=== PATIENT | male | born 1965 | race Two or more races ===

== ENCOUNTER 2017-04-04 07:57 | Day surgery (SDC) | payer MEDICARE, MEDICAID ==
[2017-04-04] MEDS ORDERED: Lactated Ringers 1,000 ML IV SCH ×2 (09:00→12:15)
[2017-04-04] MEDS ORDERED: Propofol 200 MG/20 ML SDV ONE ×2 (09:29→09:52)
[2017-04-04] MEDS ORDERED: fentaNYL 100 MCG/2 ML SDV ONE (09:29)
[2017-04-04] MEDS ORDERED: Midazolam 1 MG/ML 2 ML SDV ONE (09:29)
[2017-04-04 12:00] VITALS: BP 117/73
--- NOTE | 2017-04-05 11:34 | OR ---
DATE OF PROCEDURE: 04/04/2017 PREOPERATIVE DIAGNOSIS: Colon cancer screening. POSTOPERATIVE DIAGNOSIS: Three colon polyps and poor colonoscopy prep. PROCEDURES: Colonoscopy to the cecum with biopsy resection of three small colon polyps; 60 cm, 15 cm, and distal rectum. ANESTHESIA: IV anesthesia with monitored anesthesia care. INDICATION: This 51-year-old white male was referred for a colonoscopy for colon cancer screening. He has never had a colonoscopic exam. I counseled him for the procedure including risks and alternatives, and he gave his informed consent to proceed. DESCRIPTION OF PROCEDURE: The patient was placed in the left lateral decubitus position. IV anesthesia was administered by the Anesthesia service. Time-out was held. A rectal exam was performed, which was unremarkable. The flexible video Olympus colonoscope was introduced through his anus, up his rectum, and out his colon all way to the cecum. En route, we encountered a great deal of both solid and liquid stool. We could not remove the solid stool. We were able to remove much of the liquid stool. The scope was then slowly withdrawn examining the mucosa throughout. At 60 cm from anal verge, we encountered a polyp. This was removed with a biopsy forceps. Another one was seen at 15 cm from the anal verge and removed with biopsy forceps. The scope was retroflexed in the rectum, in the distal rectum, showing another small polyp, which was removed with the biopsy forceps. The scope was straightened and removed. He tolerated the procedure well. Talib Alonso MD /[id number]
== END 2017-04-04 13:55 | disposition home or self-care (01) ==
LOC: JP.SDS 07:57
PROVIDERS: ATTEND Surgery
PROC: 0DBP8ZX Excision of Rectum, Via Natural or Artificial Opening Endoscopic, Diagnostic (ICD-10-PCS; principal; 2017-04-04)
PROC: 0DBF8ZX Excision of Right Large Intestine, Via Natural or Artificial Opening Endoscopic, Diagnostic (ICD-10-PCS; 2017-04-04)
DX: Z12.11 Encounter for screening for malignant neoplasm of colon (principal); D12.7 Benign neoplasm of rectosigmoid junction; D12.2 Benign neoplasm of ascending colon
CPT/HCPCS: 45380; J2250; J2704; J3010; J7120; 88305

== ENCOUNTER 2020-08-10 06:12 | Day surgery (SDC) | payer MEDICARE, MEDICAID ==
[2020-08-10] MEDS: Sodium Chloride 0.9% 1,000 ML IV SCH (07:06)
[2020-08-10] MEDS ORDERED: fentaNYL 100 MCG/2 ML SDV ONE (07:18)
[2020-08-10] MEDS ORDERED: Midazolam 1 MG/ML 2 ML SDV ONE (07:18)
[2020-08-10] MEDS ORDERED: Propofol 200 MG/20 ML SDV ONE (07:18)
[2020-08-10 09:01] VITALS: BP 105/67; PULSE 66
--- NOTE | 2020-08-10 12:15 | OR ---
DATE OF PROCEDURE: 08/10/2020 SURGEON: Christian Romero MD PROCEDURE: Colonoscopy. FINDINGS: Incomplete colon prep. COMPLICATION: None. SALES AND SERVICE ADVISOR: None. ANESTHESIA: MAC. RISKS: Risks, benefits, alternatives, and limitations including, but not limited to infection, bleeding, and perforation were explained to the patient, who wished to proceed. PROCEDURE IN DETAIL: The patient was placed in left lateral decubitus position. Digital rectal exam was performed without abnormality. The scope was introduced, and immediately a large amount of solid stool was noted. This was noted to be present through the descending colon. This prevented visualization of approximately 90% of the luminal surface. Therefore, the procedure was terminated. The patient tolerated the procedure well. Christian Romero MD /[id number]
== END 2020-08-10 09:14 | disposition home or self-care (01) ==
LOC: JP.SDS 06:12
PROVIDERS: ATTEND Surgery
DX: Z12.11 Encounter for screening for malignant neoplasm of colon (principal); Z86.010 Personal history of colon polyps
CPT/HCPCS: G0104; J2250; J2704; J3010; J7030

== ENCOUNTER 2020-08-16 06:33 | Day surgery (SDC) | payer MEDICARE, MEDICAID ==
[2020-08-16] MEDS ORDERED: Sodium Chloride 0.9% 1,000 ML IV SCH (07:00)
[2020-08-16] MEDS ORDERED: Propofol 200 MG/20 ML SDV ONE (07:10)
[2020-08-16] MEDS ORDERED: Midazolam 1 MG/ML 2 ML SDV ONE (07:10)
[2020-08-16] MEDS ORDERED: fentaNYL 100 MCG/2 ML SDV ONE (07:10)
[2020-08-16 09:22] VITALS: BP 105/65; PULSE 52
--- NOTE | 2020-08-16 12:20 | PN ---
DATE OF SERVICE: 08/16/2020 The patient and I had discussion about his colonoscopy, which had a large amount of stool remaining, and it was recommended he have a longer prep and repeat colonoscopy and the patient has politely declined. We discussed risks, benefits, alternatives, limitations of this choice. We also discussed the possibility of missing colorectal cancer, polyps, or other pathological finding due to the poor prep, and he understood these risks. The patient was alert and oriented during this conversation. He asked pointed questions and understands his options clearly. Christian Romero MD /[id number]
--- NOTE | 2020-08-16 15:43 | OR ---
DATE OF PROCEDURE: 08/16/2020 SURGEON: Christian Romero MD PROCEDURE: Colonoscopy. FINDINGS: Poor colon prep. COMPLICATIONS: None. MANAGER LPN: None. ANESTHESIA: MAC. PREOPERATIVE DIAGNOSIS: History of colon polyps. POSTOPERATIVE DIAGNOSIS: History of colon polyps. RISKS: Risks, benefits, alternatives, and limitations including but not limited to infection, bleeding, and perforation were explained to the patient, who wished to proceed. PROCEDURE IN DETAIL: The patient was placed in left lateral decubitus position. Digital rectal exam was performed without abnormalities. The scope was introduced and advanced atraumatically to the ileocecal valve. A photo was taken. Scope was brought back through the ascending, transverse, and descending colon, and retroflexed. No evidence of old or new blood. The prep was marginal/poor with solid and liquid stool remaining. There was rather large amounts of stool noted. The scope was brought back through the entire colon and retroflexed, no abnormalities could be seen. The patient tolerated the procedure well. Christian Romero MD /[id number]
== END 2020-08-16 09:50 | disposition home or self-care (01) ==
LOC: JP.SDS 06:33
PROVIDERS: ATTEND Surgery
DX: Z12.11 Encounter for screening for malignant neoplasm of colon (principal); Z86.010 Personal history of colon polyps
CPT/HCPCS: G0105; J2250; J2704; J3010; J7030

== ENCOUNTER 2024-09-23 09:49 | Day surgery (SDC) | payer MEDICAID ==
[~2024-09-23 09:49] MED LIST: Midazolam 1 MG/ML 2 ML SDV ONE; Propofol 200 MG/20 ML SDV ONE; fentaNYL 100 MCG/2 ML SDV ONE
[2024-09-23] MEDS: Lactated Ringers 1,000 ML IV SCH (10:50)
[2024-09-23] MEDS ORDERED: ceFAZolin 2 GM in Premix Bag 1 BAG IV ONE (11:40)
[2024-09-23] MEDS ORDERED: Propofol 200 MG/20 ML SDV ONE (12:28)
[2024-09-23] MEDS: Bupivacaine 0.5% 50 ML MDV ONE (12:40)
[2024-09-23] MEDS: Lidocaine 1% with EPINEPHrine 1:100,000 50 ML MDV ONE (12:40)
[2024-09-23 13:53] VITALS: BP 110/64; PULSE 74
== END 2024-09-23 14:13 | disposition home or self-care (01) ==
LOC: JP.SDS 09:49
PROVIDERS: ATTEND Surgery
DX: C34.90 Malignant neoplasm of unspecified part of unspecified bronchus or lung (principal)
CPT/HCPCS: 36561; 71045; 76000; C1788; C1894; J0665; J1642; J2250; J2704; J3010; J7120

== ENCOUNTER 2024-12-16 08:10 | Day surgery (SDC) | payer MEDICAID ==
[2024-12-16] MEDS: Lactated Ringers 1,000 ML IV SCH (09:03)
[2024-12-16] MEDS ORDERED: Midazolam 1 MG/ML 2 ML SDV ONE (10:09)
[2024-12-16] MEDS ORDERED: fentaNYL 50 MCG/ML SDV ONE (10:09)
[2024-12-16] MEDS ORDERED: Propofol 200 MG/20 ML SDV ONE ×2 (10:10→10:26)
[2024-12-16] MEDS ORDERED: Lactated Ringers 1,000 ML IV SCH (10:30)
[2024-12-16 11:02] VITALS: PULSE 92
[2024-12-16 11:11] VITALS: BP 121/78
== END 2024-12-16 12:20 | disposition home or self-care (01) ==
LOC: JP.SDS 08:10
PROVIDERS: ATTEND Surgery
DX: D12.4 Benign neoplasm of descending colon (principal); K22.70 Barrett's esophagus without dysplasia; F41.9 Anxiety disorder, unspecified; Z86.0100 Personal history of colon polyps, unspecified
CPT/HCPCS: 00813; 43239; 45380; J2250; J2704; J3010; J7120